=== PATIENT | male | born 2000 | race Caucasian/White ===

== ENCOUNTER 2021-03-12 15:16 | Emergency (ER) | payer MEDICAID ==
[~2021-03-12] VITALS: Ht 172.7 cm; Wt 63.6 kg
[2021-03-12 15:30] VITALS: BP 126/78
[2021-03-12 15:56] LABS: BILIRUBIN,URINE NEGATIVE (NEG); CLARITY,URINE CLEAR; COLOR,URINE YELLOW; NITRITE,URINE NEGATIVE (NEG); PH,URINE 6.5 (<5.0-8.0); PROTEIN,URINE NEGATIVE (NEG-TRACE); UROBILINOGEN,URINE 0.2 mg/dL (0.2 mg/dL)
[2021-03-12] MEDS ORDERED: cefTRIAXone IM 500 MG VIAL. IM ONE (16:00)
--- NOTE | 2021-03-12 16:02 | PHYS DOC ---
Past Medical History Additional Past Medical Histor: "URINARY ISSUES" (AD SANON APRN) Past Surgical History: No Surgical History (AD SANON APRN) Smoking Status: Former Smoker Alcohol Use: None (AD SANON APRN) General Adult EDM: Chief Complaint: TESTICULAR PAIN OR INJURY HPI: HPI: Patient is a 20-year-old male that presents today with painful urination and penile discharge, along with a lump on his left testicle. Patient states that he is fairly new to the area and he does have a past medical history of having urinary issues, he does have an appointment at the [facility] urology clinic in April for management of those issues, but today he presents with painful urination and penile discharge after having unprotected sex. Patient states this been going on for a couple of days, and it hurts to go to the bathroom. Patient also noted that he had a lump on his left testicle and he would like that checked out. (AD SANON APRN) Review of Systems: Review of Systems: Constitutional: Denies fever or chills. [] Eyes: Denies change in visual acuity. [] HENT: Denies nasal congestion or sore throat. [] Respiratory: Denies cough or shortness of breath. [] Cardiovascular: Denies chest pain or edema. [] GI: Denies abdominal pain, nausea, vomiting, bloody stools or diarrhea. [] : dysuria and penile discharge and lump on left testicle. [] Musculoskeletal: Denies back pain or joint pain. [] Integument: Denies rash. [] Neurologic: Denies headache, focal weakness or sensory changes. [] Endocrine: Denies polyuria or polydipsia. [] Lymphatic: Denies swollen glands. [] Psychiatric: Denies depression or anxiety. [] (AD SANON APRN) Heart Score: C/O Chest Pain: N/A Risk Factors: Risk Factors: DM, Current or recent (<one month) smoker, HTN, HLP, family history of CAD, obesity. Risk Scores: Score 0 - 3: 2.5% MACE over next 6 weeks - Discharge Home Score 4 - 6: 20.3% MACE over next 6 weeks - Admit for Clinical Observation Score 7 - 10: 72.7% MACE over next 6 weeks - Early Invasive Strategies (AD SANON COMMERCIAL DESIGNER) Allergies: Allergies: Allergies Coded Allergies Type Severity Reaction Last Updated Verified No Known Drug Allergies 03/12/21 No (AD SANON COMMERCIAL DESIGNER) Physical Exam: PE: Constitutional: Well developed, well nourished, no acute distress, non-toxic appearance. [] HENT: Normocephalic, atraumatic, bilateral external ears normal, oropharynx moist, no oral exudates, nose normal. [] Eyes: PERRLA, EOMI, conjunctiva normal, no discharge. [] Neck: Normal range of motion, no tenderness, supple, no stridor. [] Cardiovascular:Heart rate regular rhythm, no murmur [] Lungs & Thorax: Bilateral breath sounds clear to auscultation [] Abdomen: Bowel sounds normal, soft, no tenderness, no masses, no pulsatile masses. [] Skin: Warm, dry, no erythema, no rash. [] Back: No tenderness, no CVA tenderness. [] Extremities: No tenderness, no cyanosis, no clubbing, ROM intact, no edema. [] Neurologic: Alert and oriented X 3, normal motor function, normal sensory function, no focal deficits noted. [] Psychologic: Affect normal, judgement normal, mood normal. [ MALE : Palpation of the testicles does note a lump on the left testicle, urethra meatus no redness or drainage noted at this time.] (AD SANON COMMERCIAL DESIGNER) Current Patient Data: Labs: Laboratory Tests Test 03/12/21 15:29 Urine Color Yellow Urine Clarity Clear Urine pH 6.5 Urine Specific [place] <=1.005 Urine Protein Negative mg/dL Urine Glucose (UA) Negative mg/dL Urine Ketones (Stick) Negative mg/dL Urine Blood Negative Urine Nitrite Negative Urine Bilirubin Negative Urine Urobilinogen Dipstick 0.2 mg/dL Urine Leukocyte Esterase Negative Urine RBC 0 /HPF Urine WBC Rare /HPF Urine Bacteria 0 /HPF Current Medications Medications (Trade) Dose Ordered Sig/Natalie Route PRN Reason Start Time Stop Time Status Last Admin Dose Admin Ceftriaxone Sodium (Rocephin Im) 500 mg 1X ONCE IM 03/12/21 16:00 03/12/21 16:03 DC 03/12/21 16:12 Vital Signs: Vital Signs Date Time Temp Pulse Resp B/P (MAP) Pulse Ox O2 Delivery O2 Flow Rate FiO2 03/12/21 15:30 97.7 71 16 126/78 (94) 97 Room Air 97.7 (AD SANON APRN) EKG: EKG: [] (AD SANON APRN) Radiology/Procedures: Radiology/Procedures: REASON: LUMP NOTED ON LEFT TESTICLE PROCEDURE: TESTICULAR/SCROTUM STUDY: US testicular CLINICAL HISTORY: Left testicle lump. COMPARISON: None available. TECHNIQUE: Ultrasound images of the scrotum was performed with cardoza-scale and color doppler. FINDINGS: The right testicle measures 4.7 x 3.6 x 2 cm and the left testicle 4.7 x 2.6 x 2.1 cm. Homogeneous echotexture with maintained and symmetric Doppler flow. The right epididymal head measures 0.7 x 1.3 x 0.8 cm and the left 1.1 x 1 x 1.7 cm. Epididymal head cyst on the left measuring 0.9 x 0.8 x 1 cm. No significant hydrocele. No varicocele. Unremarkable scrotal soft tissues. No inguinal hernia. IMPRESSION: Left epididymal head cyst measuring 0.9 x 0.8 x 1 cm likely accounting for the patient's reported palpable abnormality. No testicular mass or other notable finding. Electronically signed by: FRANK ANTONIO MD (03/12/2021 4:59 PM) [facility][] (AD SANON APRN) Course & Med Decision Making: Course & Med Decision Making Pertinent Labs and Imaging studies reviewed. (See chart for details) 1705 reviewed radiological and laboratory results with patient. Did inform them that there was a small cyst on the left testicle but it should be monitored by urologist. Patient states he has an appointment again with the [facility] urology group. Patient will also be given the urologist on-call here at [facility] for further management. Patient is also informed that he will need to get a prescription filled for doxycycline for the remaining treatment for his sexually transmitted infection. Patient is agreeable to taking that medication. And verbalizes the understanding that he needs to take the entire course of the medication. (AD SANON APRN) Sunny Disclaimer: Sunny Disclaimer: This electronic medical record was generated, in whole or in part, using a voice recognition dictation system. (AD SANON APRN) Departure Departure Impression: Primary Impression: Testicular cyst Additional Impression: Sexually transmitted disease exposure Disposition: HOME / SELF CARE / HOMELESS Condition: STABLE Referrals: NO PCP (PCP) MELANI LAWRENCE MD Patient Instructions: Sexually Transmitted Disease Additional Instructions: Use condoms while having sex Doxycycline 100 mg take 1 tablet twice daily for 7 full days complete the entire course of this medication. Follow-up with your urologist at the [facility] or the urologist provided in the referral section here for further management of your cyst on your left testicle. Scripts Doxycycline Hyclate (DOXYCYCLINE HYCLATE) 100 Mg Capsule 1 CAP PO BID, #14 CAP Prov: AD SANON APRN 03/12/21 Attending Signature Attending Signature I have reviewed the PA/DELINQU[employer]VENTION SOCIAL WORKER's note and plan of care. I was available for consultation as needed during the patient's visit in the emergency department. I agree with the clinical impression, plan, and disposition. (DEVORA BONDS DO) AD SANON APRN Mar 12, 2021 16:02 DEVORA BONDS DO Mar 14, 2021 11:08
[2021-03-12 16:10] LABS: BACTERIA,URINE 0 /HPF (0-FEW); RBC,URINE 0 /HPF (0-2); WBC,URINE RARE /HPF (0-4)
--- NOTE | 2021-03-12 17:01 | RAD ---
STUDY: US testicular CLINICAL HISTORY: Left testicle lump. COMPARISON: None available. TECHNIQUE: Ultrasound images of the scrotum was performed with cardoza-scale and color doppler. FINDINGS: The right testicle measures 4.7 x 3.6 x 2 cm and the left testicle 4.7 x 2.6 x 2.1 cm. Homogeneous ec hotexture with maintained and symmetric Doppler flow. The right epididymal head measures 0.7 x 1.3 x 0.8 cm and the left 1.1 x 1 x 1.7 cm. Epididymal head cyst on the left measuring 0.9 x 0.8 x 1 cm. No significant hydrocele. No varicocele. Unremarkable scrotal soft tissues. No inguinal hernia. IMPRESSION: Left epididymal head cyst measuring 0.9 x 0.8 x 1 cm likely accounting for the patient's reported pal pable abnormality. No testicular mass or other notable finding. Electronically signed by: FRANK ANTONIO MD (03/12/2021 4:59 PM) [facility]
[2021-03-12] MEDS ORDERED: DOXY100C3 PO (17:12)
== END 2021-03-12 17:18 | disposition home or self-care (01) ==
LOC: ER 15:16
DX: N44.2 Benign cyst of testis (principal); Z20.2 Contact with and (suspected) exposure to infections with a predominantly sexual mode of transmission; Z87.891 Personal history of nicotine dependence
CPT/HCPCS: 76870; 81001; 87491; 87591; 96372; 99284; J0696; 99283